=== PATIENT | female | born 1945 | race Caucasian/White ===

== ENCOUNTER 2020-05-12 11:03 | Emergency (ER) | payer OTHER ==
[~2020-05-12] VITALS: Ht 162.6 cm; Wt 52.2 kg
[2020-05-12] MEDS ORDERED: VITAMIN C500 M2 PO (15:06)
[2020-05-12] MEDS ORDERED: ASA81BEC PO (15:06)
[2020-05-12] MEDS ORDERED: ATORVASTATIN CA80 MG PO (15:07)
[2020-05-12] MEDS ORDERED: CARBIDOPA-LEVODOPA PO (15:08)
[2020-05-12] MEDS ORDERED: CLOZAPINE ODT12.5 MG PO (15:09)
[2020-05-12] MEDS ORDERED: CARDIZEM SR 60M60 MG PO (15:09)
[2020-05-12] MEDS ORDERED: FEOSOL325 M1 PO (15:10)
[2020-05-12] MEDS ORDERED: DULCOLAX STOOL100 M1 PO (15:10)
[2020-05-12] MEDS ORDERED: FUROSEMIDE 40 M40 MG PO (15:11)
[2020-05-12] MEDS ORDERED: LEVO-T100 MCG PO (15:11)
[2020-05-12] MEDS ORDERED: LORAZEPAM 0.50.5 MG PO (15:12)
[2020-05-12] MEDS ORDERED: LITHIUM CARBON300 M3 PO (15:12)
[2020-05-12] MEDS ORDERED: METFORMIN HCL500 M3 PO (15:13)
[2020-05-12] MEDS ORDERED: UNICOMPLEX M TA1 TA1 PO (15:15)
[2020-05-12] MEDS ORDERED: TOPROL XL25 MG PO (15:15)
[2020-05-12] MEDS ORDERED: NITROSTAT0.4 M1 SUBLING (15:15)
[2020-05-12] MEDS ORDERED: FISH OIL 1,0001 EAC9 PO (15:16)
[2020-05-12] MEDS ORDERED: MIRALAX17 GM PO (15:17)
[2020-05-12] MEDS ORDERED: POTASSIUM20 PO (15:18)
[2020-05-12 20:58] VITALS: BP 138/84
== END 2020-05-12 21:35 ==
LOC: ER 11:03
DX: F03.91 Unspecified dementia, unspecified severity, with behavioral disturbance (principal); G20 Parkinson's disease; F31.9 Bipolar disorder, unspecified; R53.81 Other malaise; M19.90 Unspecified osteoarthritis, unspecified site; I10 Essential (primary) hypertension; E03.9 Hypothyroidism, unspecified; E11.9 Type 2 diabetes mellitus without complications; E78.5 Hyperlipidemia, unspecified; Z20.828 Contact with and (suspected) exposure to other viral communicable diseases; Z79.899 Other long term (current) drug therapy; Z79.82 Long term (current) use of aspirin; Z91.048 Other nonmedicinal substance allergy status; Z91.040 Latex allergy status; Z88.2 Allergy status to sulfonamides

== ENCOUNTER 2020-05-12 14:37 | Inpatient (IN) | payer OTHER ==
[~2020-05-12] VITALS: Ht 162.6 cm; Wt 52.2 kg
[2020-05-12] MEDS ORDERED: VITAMIN C500 M2 PO (15:06)
[2020-05-12] MEDS ORDERED: ASA81BEC PO (15:06)
[2020-05-12] MEDS ORDERED: ATORVASTATIN CA80 MG PO (15:07)
[2020-05-12] MEDS ORDERED: CARBIDOPA-LEVODOPA PO (15:08)
[2020-05-12] MEDS ORDERED: CLOZAPINE ODT12.5 MG PO (15:09)
[2020-05-12] MEDS ORDERED: CARDIZEM SR 60M60 MG PO (15:09)
[2020-05-12] MEDS ORDERED: DULCOLAX STOOL100 M1 PO (15:10)
[2020-05-12] MEDS ORDERED: FEOSOL325 M1 PO (15:10)
[2020-05-12] MEDS ORDERED: LEVO-T100 MCG PO (15:11)
[2020-05-12] MEDS ORDERED: FUROSEMIDE 40 M40 MG PO (15:11)
[2020-05-12] MEDS ORDERED: LITHIUM CARBON300 M3 PO (15:12)
[2020-05-12] MEDS ORDERED: LORAZEPAM 0.50.5 MG PO (15:12)
[2020-05-12] MEDS ORDERED: METFORMIN HCL500 M3 PO (15:13)
[2020-05-12] MEDS ORDERED: UNICOMPLEX M TA1 TA1 PO (15:15)
[2020-05-12] MEDS ORDERED: NITROSTAT0.4 M1 SUBLING (15:15)
[2020-05-12] MEDS ORDERED: METOPROLOL TART25 MG PO (15:15)
[2020-05-12] MEDS ORDERED: FISH OIL 1,0001 EAC9 PO (15:16)
[2020-05-12] MEDS ORDERED: MIRALAX17 GM PO (15:17)
[2020-05-12] MEDS ORDERED: POTASSIUM20 PO (15:18)
--- NOTE | 2020-05-12 22:59 | NUR ---
PT ADMITTED TO THE UNIT AT APPROXIMATELY 2200. PT IS A/O X3 WITH SOME FORGETFULLNESS. PT IS UP X1 TO THE BSC. UNSTEADY AND SHOULD NOT AMBULATE AD SYLVIA. PT IS 97% ON RA. BEHAVIOR IS UNDERACTIVE AND IS SLOW TO RESPOND. SOFT SPOKEN. DENIES ANY C/O PAIN OR DISCOMFORT AT THIS TIME. PT DENIES SI/HI/AVH. CURRENTLY PT IS LYING IN HER BED AND APPEARS TO BE SLEEPING. FALL PRECAUTIONS ARE IN PLACE. WILL CONTINUE TO MONITOR.
[2020-05-13 07:30] VITALS: BP 145/82
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
--- NOTE | 2020-05-13 15:23 | NUR ---
1520 RESUMMED CARE FROM OVERNIGHT SHIFT THIS AM, PATIENT IN ROOM ASLEEP. PATIENT CAME TO DAYROOM FOR BREAKFAST TOOK MEDICATION WITHOUT INCIDENCE. PATIENT ORIENTED TIMES 3 PATIENT DENIES SI/HI/AH/VH AT PRESENT PATIENT CALM COOPERATIVE. PATIENTS ABDOMEN SOFT FLAT BOWEL SOUNDS PRESENT LUNGS CLEAR. PATIENTS CALLED HE IS PATIENT DPOA GAVE ME CONSENTS TO TREAT PATIENT AND ADMISSION. PATIENT COLORED A LITTLE WHILE IN DAYROOM SHE IS WATCHING TV AND MINIMAL INTERACTION WITH OTHER PATIENTS. WILL CONTINUE TO MONITOR FOR PATIENT FOR BEHAVIORS AND SAFETY.
[2020-05-13 19:06] LABS: ABSOLUTE NEUTROPHILS 5.6 thou/uL (1.4-8.2); BASOPHILS 0.5 % (0.0-2.0); HEMATOCRIT 43.4 % (37.0-47.0); HEMOGLOBIN 14.5 gm/dL (12.0-15.0); LYMPHOCYTES 16.9 % (24.0-44.0); MCH 30.9 pg (26.0-34.0); MCHC 33.5 g/dL (28.0-37.0); MCV 92.3 fL (80.0-100.0); MONOCYTES 10.7 % (1.0-8.0); PLATELET COUNT 294 thou/uL (150-400); POLYS 70.9 % (36.0-66.0); RDW 15.5 % (10.5-14.5); WBC 7.9 thou/uL (4.0-11.0)
[2020-05-13 19:20] LABS: ALBUMIN 3.6 g/dL (3.4-5.0); CALCIUM 10.4 mg/dL (8.5-10.1); CREATININE 1.1 mg/dL (0.6-1.0); POTASSIUM 3.2 mmol/L (3.5-5.1); TOTAL BILIRUBIN 0.7 mg/dL (0.2-1.0); TOTAL PROTEIN 7.5 g/dL (6.4-8.2)
[2020-05-13 20:14] VITALS: BP 141/71
--- NOTE | 2020-05-14 01:43 | NUR ---
05-13-20 CARE TRANSFERRED 1899. PT AAOX2, VSS, RR EVEN AND NONLABORED ON RA. PT DENIES SI/HI AND PAIN. PT PRESENTS CALM AND COOPERATIVE, WHEN ASKING QUESTIONS PT HAS SLOW, CLEAR RESPONSES. DURING MEDICATION ADMIN PT HAD NO DIFFICLUTIES TAKING MEDICATION WHOLE WITH WATER. ZERO S/S OF ACUTE DISTRES, PT WILL CONTINUE TO BE MONITOR PER [facility] PROTOCOL.
[2020-05-14 11:20] VITALS: BP 125/69
[2020-05-14 19:56] VITALS: BP 108/66
--- NOTE | 2020-05-15 03:48 | NUR ---
05-15-20 CARE TRANSFERRED 1900 OBSERVED PT SITTING IN DAY ROOM SOCIALIZING WITH PEER(S). DURING NURSING ASSESSMENT PT HAS COGNITIVE DELAY IN RESPONSES TO QUESTIONS, PT EXHIBIT PARANOIA WHEN TRUSTING OTHERS, FLAT AFFECT. PT AAOX1, VSS, RR EVEN AND NONLABORED ON RA. PT DENIES SI/HI AND PAIN. PT HAS REMAINED CALM AND COOPERATIVE. DURING MEDICATION ADMIN PT HAD NO DIFFICULTIES TAKING MEDICATION WHOLE WITH WATER. LATER ADJUSTED PT BED FOR COMFORT, ZERO S/S OF ACUTE DISTRESS NOTED. PT WILL CONTINUE TO BE MONITOR PER [facility] PROTOCOL.
[2020-05-15 07:47] VITALS: BP 97/59
[2020-05-15 10:51] VITALS: BP 102/64
--- NOTE | 2020-05-15 12:29 | NUR ---
1230 RESUMMED CARE FROM OVERNIGHT SHIFT THIS AM, PATIENT IN ROOM QUIET. PATIENT GOT UP AND ATE BREAKFAST TOOK MEDICATION WITHOUT INCIDENCE. PATIENT ORIENTED TIMES 4 QUIET CALM COOPERATIVE. PATIENTS ABDOMEN SOFT ROUND BOWEL SOUNDS PRESENT LUNGS CLEAR. PATIENT DENIES SI/HI/AH/VH AT PRESENT WILL CONTINUE TO MONITOR PATIENT FOR BEHAVIORS AND SAFETY.
[2020-05-15 19:40] VITALS: BP 146/97
--- NOTE | 2020-05-16 04:33 | NUR ---
Assumed care of patient this pm shift. Patient is pleasantly confused. Alert and oriented to self. Patient denies hi/si. Patients affect is flat. Patient takes medications whole with thin fluids. Patient ambulates with a steady gait and utilizes a walker at times. Patient has been up several times in the night stating that she wants to get dressed for the meeting. Patient is redirectable and goes back to bed after a brief explanation of the time. We will continue to monitor per hospital policy.
[2020-05-16 09:18] VITALS: BP 125/68
--- NOTE | 2020-05-16 11:15 | NUR ---
Care assumed of patient at 0715: Patient in her room at start of shift. Patient alert and oriented to person and place. Confused and forgetful. Patient appears to be worried about her clothing and showering today. Needing reminders that she received new clothing this AM and will shower after lunch. Patient denies pain and discomfort. Denies SI/HI/AH/VH. No delusional or paranoia behaviors observed. Patient speech is slow and soft. Took AM medication without difficulty. Ambulating with walker about unit and her room. Steady gait, good balance. Seated quietly in her room at this time.
[2020-05-16 20:18] VITALS: BP 97/61
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
[2020-05-17 06:31] LABS: HEMATOCRIT 38.9 % (37.0-47.0); MCH 30.7 pg (26.0-34.0); MCHC 33.3 g/dL (28.0-37.0); MCV 92.1 fL (80.0-100.0); RBC 4.22 mil/uL (4.20-5.00); RDW 15.3 % (10.5-14.5); WBC 5.8 thou/uL (4.0-11.0)
[2020-05-17 06:59] LABS: CALCIUM 9.7 mg/dL (8.5-10.1); CREATININE 0.9 mg/dL (0.6-1.0); MAGNESIUM 2.1 mg/dL (1.8-2.4)
[2020-05-17 07:12] LABS: POTASSIUM 2.6 mmol/L (3.5-5.1)
--- NOTE | 2020-05-17 07:20 | NUR ---
LAB CALLED WITH CRITICAL POTASSIUM VALUE OF 2.6, DR. ESQUEDA NOTIFIED. WILL PUT SOME ORDERS IN FOR HER PER DR. ESQUEDA.
[2020-05-17 09:17] VITALS: BP 92/56; BP 94/56
--- NOTE | 2020-05-17 11:19 | NUR ---
PATIENT WAS IN BED SLEEPING WHEN CARE ASSUMED THIS MORNING. SHE IS ALERT, AND ORIENTED X 1-2 WITH PERIODS OF FORGETFULNESS, AND CONFUSION. PATIENT HAD BREAKFAST IN ROOM, ABLE TO FEED SELF. MORNING MEDICATION GIVEN WHOLE WITHOUT DIFFICULTY, WELL TOLERATED. PATIENT PARTICIPATED IN MORNING GROUP. SHE IS CALM, COOPERATIVE WITH CARE. AFFECT IS FLAT/BLUNTED, MOOD IS DEPRESSED, AND CALM. PATIENT DENIES SUICIDAL/HOMICIDAL IDEATION. NO SIGN OF ACUTE DISTRESS NOTED AT THIS TIME, WILL CONTINUE TO REDIRECT, AND MONITOR FOR SAFETY.
[2020-05-17 17:32] LABS: CALCIUM 10.3 mg/dL (8.5-10.1)
[2020-05-17 17:33] LABS: POTASSIUM 4.9 mmol/L (3.5-5.1)
[2020-05-17 19:47] VITALS: BP 135/75
[2020-05-17 20:30] VITALS: BP 135/75
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
[2020-05-18 09:13] VITALS: BP 117/76
--- NOTE | 2020-05-18 11:50 | NUR ---
RT Progress Note- Elma has been an active participant in recreation therapy groups this week. She often displays a flattened affect, but offers full participation. During unscheduled activities, she returns to her room. THROUGH OPERATOR has only observed paranoid behaviors when a select patient begins wandering near her room, however she does not appear paranoid during group interactions. THROUGH OPERATOR will continue to encourage participation and socialization.
--- NOTE | 2020-05-18 15:50 | NUR ---
Alert and orientated X 3 this AM, concerned about missing eyeglasses which were later found. Denies SI/HI. Breath sounds clear. Reg HR auscultated. Color pink with brisk capillary refill and palpable peripheral pulses. Independent with voiding. Active bowel sounds over soft, flat abdomen. Ambulating with regular, steady, slow gait with walker. Currently in room, no s/o distress.
[2020-05-18 20:47] VITALS: BP 140/85
--- NOTE | 2020-05-19 04:17 | NUR ---
Assumed pt care at 1900. Pt has been up in room during evening. Pt is alert and oriented x 2. Pt has been calm, cooperative and pleasant. Pt takes medications whole with thin fluids. Pt is medicaiton complaint. Pt HS accu check was 118; no sliding scale adminsitered per orders. Pt denies pain. Pt denied SI/HI. Pt affect is flat. Pt is pleasantly confused, but easily redirectable. Pt up at 0400 to use restroom. Pt last BM was 05/18/20. Will continue to monitor for behaviors/status, and safety per the unit protocol.
[2020-05-19 09:58] VITALS: BP 123/61
[2020-05-19 09:59] VITALS: BP 123/61
[2020-05-19 10:09] VITALS: BP 123/61
--- NOTE | 2020-05-19 12:23 | NUR ---
1230 RESUMMED CARE FROM OVERNIGHT SHIFT THIS AM, PATIENT IN ROOM QUIET CALM. PATIENT CAME TO DAYROOM ATE BREAKFAST TOOK MEDICATION WITHOUT INCIDENCE. PATIENT DENIES SI/HI/AH/VH AT PRESENT PATIENT ORIENTED TIMES 4 CALM COOPERATIVE. PATIENTS ABDOMEN SOFT FLAT BOWEL SOUNDS PRESENT LUNGS CLEAR, SKIN INTACT. PATIENT SPOKE WITH THIS AM PARTICIPATED IN GROUPS WILL CONTINUE TO MONITOR PATIENT FOR SAFETY AND BEHAVIORS.
[2020-05-19 20:32] VITALS: BP 143/90
--- NOTE | 2020-05-20 03:26 | NUR ---
Assumed care of patient this pm shift. Patient is pleasantly confused, alert and oriented to self only. Patient takes medicaitons whole with thin fluids. Patient denies hi/si. Patient ambulates with a walker. Patient denies pain. Patient is considered a falls risk, falls precautions in place. Vital signs are stable. Patients assessment shows no signs of acute distress. Affect is suspicious. We will continue to monitor per hospital policy.
[2020-05-20 08:16] VITALS: BP 106/63
[2020-05-20 08:30] VITALS: BP 106/63
--- NOTE | 2020-05-20 09:30 | NUR ---
SW attemtped to administer a SLUMS with pt. When SW approached, pt just stared at SW. SW asked her how she was doing several times, and she didnt respond. SW then told pt she will talk with her nurse. Pt responded "what?" SW again tried to engage pt, and pt just stared at SW. SW provided an update on her interaction with pt. SW team will continue to follow pt during her stay on this unit.
--- NOTE | 2020-05-20 10:42 | NUR ---
LISTENED TO PT HEART THIS AM AND IT WAS IRREGULAR RATE. PT STATED SHE DIDN'T FEEL GOOD TODAY. ASSISTED PT TO BATHROOM THIS AM AND SHE STOPPED IN FRONT OF THE BATHROOM DOOR. PT SEEMS SLOW THIS AM. OBTAINED EKG ORDER FROM DEION CLIFTON, SHOWED AFIB. CALLED DR. KNOTT DUE TO AFIB RESULT AND NEEDING CARDIAC MEDS ORDERED FROM HOME MED LIST.
--- NOTE | 2020-05-20 12:22 | NUR ---
ADM METOPROLOL 25MG PO. PT TAKES MEDS WHOLE WITH WATER. PT UP TO DINING ROOM TO EAT LUNCH, EATING 50% OF LUNCH. PT USES WALKER FAITHLY. PT STATED SHE FELT BETTER.
--- NOTE | 2020-05-20 15:30 | NUR ---
PT FINISHED BRUSHING TEETH AND WAS SOA. ASSISTED PT WITH TAKING OFF HER SHIRT TO CHANGE IT. SHE DIDN'T WANT THIS FINANCE ATTORNEY TO TAKE HER SHIRT TO WASH STATING THAT SHE ILL NOT GET IT BACK. ENSURED PT THAT SHE WILL GET HER CLOTHERS BACK. PT HAS JECANDELARIA IN HER ROOM AND STATED ONE PAIR IS TOO TIGHT AND ONE PAIR IS TOO BIG SEEMS THAT BOTH PAIRS ARE THE SAME SIZE.
[2020-05-20 19:50] VITALS: BP 126/60
--- NOTE | 2020-05-21 05:02 | NUR ---
05-20-20 CARE TRANSFERRED 1900 OBSERVED PT SITTING ON BUNK IN ROOM. PT AAOX2, VSS, RR EVEN AND NONLABORED ON RA. PT DENIES SI/HI AND PAIN. PT PRESENTS PARANOID, BUT HAS REMAINED CALM AND COOPERATIVE THROUGHOUT NURSING ASSESSMENT. DURING MEDICATION ADMIN PT HAD NO DIFFICULTIES. PT WAS ASSISTED WITH ADJUSTMENT OF BED FOR COMFORT; ZERO S/S OF ACUTE DISTRESS NOTE. PT WILL CONTINUE TO BE MONITOR PER [facility] PROTOCOL.
[2020-05-21 09:18] VITALS: BP 81/49
--- NOTE | 2020-05-21 09:48 | NUR ---
SW attempted again to complete a SLUMS with pt. Pt looked at SW. She then responded very slowly but SW was unable to understand what she said. SW asked if she remembers her from yesterday. Pt responded "no." SW asked if she would like to speak to SW today. Pt responded but it was something SW could not understand. SW asked her to repeat, but pt just stared at her. Staff said she has been somewhat talking but very low and mostly reponses that are not appropiate to the question being asked. SW team will continue to follow pt during her stay on this unit.
--- NOTE | 2020-05-21 18:46 | NUR ---
INITALLY THIS AM PLEASANT AND COOPERATIVE DENIES COMPLAINTS-VISIBLE IN DAYROOM WITH PEERS AND ABLE TO FEED SELF BREAKFAST-ORIENTED TO NAME ONLY-AT APPROX 1230 NOTED TO BECOME SUSPICIOUS AND ARGUMENTATIVE WITH STAFF -
[2020-05-21 20:17] VITALS: BP 105/71
--- NOTE | 2020-05-21 21:38 | EKG ---
[address] [place] [address] ELECTROCARDIOGRAM REPORT Name: EVERTON KNIGHT Room #: [facility]- ADM IN ..#: [id number] Admission: 05/12/20 Attend Phys: Neymar Thompson DO Discharge: Date of : 49 Report #: [id number] [facility] Test Date: 2020-05-20 Test Time: 09:46:58 Pat Name: EVERTON KNIGHT Department: Room: [facility] Gender: F [employer]: AMEE : 1945 Requested By: Reji Durand Order Number: [id number] MD: Fredrick Franco Measurements Intervals [place] Rate: 108 P: ID: QRS: -20 QRSD: 94 T: 104 QT: 346 QTc: 464 Interpretive Statements Atrial fibrillation Rapid ventricular response Lead I, aVL criteria for LVH with secondary repolarization abnormality No previous ECG available for comparison Electronically Signed On 05-21-2020 21:38:06 [employer] by Fredrick Franco [email or web address] <ELECTRONICALLY SIGNED> By: Fredrick Franco MD 05/21/20 2138 0946 5 Fredrick Franco MD /POORNIMA
--- NOTE | 2020-05-22 05:06 | NUR ---
Assumed pt care at 1900. Pt in dayroom sitting in w/c during earlier part of shift. Pt is calm and cooperative with assessment and medication compliant. Pt takes medications whole with thin liquids. Pt is A&O x 2. Pt presents with flat affect. Pt can be suspicious at times, but has been redirectable. Pt can ambulate with walker, but has been unsteady and utilizing a w/c throughout this shift. Pt is pleasantly confused and is redirectable. Pt assisted with ADLs and dressing this morning. Pt had PRN Tylenol and Zofran at 0122 for generalized pain and upset stomach/nausea. PRNs effective. Pt denies SI/HI. Pt is a high falls risk and fall risk precautions are implemented and in place. Will continue to monitor for changes in behavior and for safety per hospital protocol.
[2020-05-22 07:50] VITALS: BP 105/70
[2020-05-22 08:40] VITALS: BP 105/70
--- NOTE | 2020-05-22 09:04 | NUR ---
PT SITTING IN DINING ROOM IN W/C. PT HAS FLAT AFFECT AND SEEMS TIRED THIS AM. PT ABLE TO FEED SELF. PT TOOK MEDS WHOLE WITH WATER. ASKED PT IF SHE WOULD LIKE A SHOWER, PT STATED I DON'T HAVE ANY CLOTHES. PT HAS SHIRTS AND BLACK PANTS IN ROOM, SHE ALSO HAS JEANS IN HER ROOM. PT NOT USING A WALKER TODAY. PT VERY SLOW WITH W/C.
--- NOTE | 2020-05-22 10:17 | NUR ---
Assess for length of stay on [facility] unit. Pt unable to answer questions. Chart reviewed, eating >75% most meals, no wt changes and BG levels controlled. Low nutrition risk
[2020-05-22 20:06] VITALS: BP 101/69
[2020-05-23 05:21] LABS: ABSOLUTE NEUTROPHILS 5.9 thou/uL (1.4-8.2); BASOPHILS 0.4 % (0.0-2.0); EOSINOPHILS 2.5 % (0.0-3.0); HEMATOCRIT 34.6 % (37.0-47.0); HEMOGLOBIN 11.7 gm/dL (12.0-15.0); LYMPHOCYTES 10.5 % (24.0-44.0); MCH 31.3 pg (26.0-34.0); MCHC 33.9 g/dL (28.0-37.0); MCV 92.4 fL (80.0-100.0); MONOCYTES 9.8 % (1.0-8.0); PLATELET COUNT 202 thou/uL (150-400); POLYS 76.8 % (36.0-66.0); RBC 3.74 mil/uL (4.20-5.00); RDW 15.5 % (10.5-14.5); WBC 7.6 thou/uL (4.0-11.0)
--- NOTE | 2020-05-23 05:26 | NUR ---
Assumed care for this patient at 1900. Pt up in day room in wheelchair. Pt A&O x 2. Pt presents with flat affect. She is pleasant, calm and cooperative. Pt utilizes walker and w/c at times d/t being unsteady. Pt takes medications whole with thin liquids. Pt complaint with medications. Pt assisted with taking a bath this shift and washing her hair. Pt personal clothing was washed & bedding changed. Pt was able to independently wash face and front of body, assisted with washing hair and back. Pt wears brief and able to voice when she needs to use restroom. Pt is a high fall risk with fall protocols in place. Will continue to monitor for any changes and safety.
[2020-05-23 05:44] LABS: ALBUMIN 3.1 g/dL (3.4-5.0); CREATININE 0.8 mg/dL (0.6-1.0); POTASSIUM 3.4 mmol/L (3.5-5.1); TOTAL BILIRUBIN 0.8 mg/dL (0.2-1.0); TOTAL PROTEIN 5.8 g/dL (6.4-8.2)
[2020-05-23 07:55] VITALS: BP 87/56
[2020-05-23 08:30] VITALS: BP 87/56
[2020-05-23 08:37] VITALS: BP 120/74
--- NOTE | 2020-05-23 08:42 | NUR ---
RECHECKED BP FROM 87/56, 82. NOW 120/74, 89. PT RESTING IN BED. PT AWAKEN WITH VERBAL STIMULI. PT HAD SHOWER LAST NIGHT.
--- NOTE | 2020-05-23 11:00 | NUR ---
PT AWAKE NOW AND GETTING UP. PT NEEDED TO USE W/C DUE TO RETROGRADE BACK WITH WALKER. PT TOOK MEDS WITHOUT ANY ISSUES.
--- NOTE | 2020-05-23 12:58 | EKG ---
[address] [address] ELECTROCARDIOGRAM REPORT Name: EVERTON KNIGHT Room #: 520A- ADM IN M.R.#: [id number] Admission: 05/12/20 Attend Phys: Neymar Thompson DO Discharge: Date of : 49 Report #: [id number] [facility] Test Date: 2020-05-23 Test Time: 12:25:16 Pat Name: EVERTON KNIGHT Department: Room: [facility] Gender: F [employer]: RAYSA : 1945 Requested By: Maria E Schwartz Order Number: [id number] MD: Reji Weinstein Measurements Intervals [place] Rate: 87 P: CO: QRS: -22 QRSD: 89 T: 58 QT: 367 QTc: 442 Interpretive Statements Atrial fibrillation Ventricular premature complex Abnormal R-wave progression, late transition Left ventricular hypertrophy Compared to ECG 05/20/2020 09:46:58 Ventricular premature complex(es) now present Early repolarization no longer present Electronically Signed On 05-23-2020 12:58:40 [employer] by Reji Weinstein [email or web address] <ELECTRONICALLY SIGNED> By: Reji Weinstein MD, FACC 05/23/20 1258 1225 1225 Reji Weinstein MD, FACC /EPI
--- NOTE | 2020-05-23 17:31 | NUR ---
PT SITTING OUT IN DINING ROOM SINCE 4PM. PT VOICED NO COMPLAINTS TODAY.
[2020-05-23 19:32] VITALS: BP 133/84
--- NOTE | 2020-05-24 04:43 | NUR ---
Assumed care of patient this pm shift. Patient calm and cooperative. Alert and oriented to self. Takes medications whole with thin fluids. Falls precautions in place. Denies hi/si. Assessment shows no signs of acute distress. Ambulates via walker. Continent of bowel and bladder. Vital signs stable. No negative or abnormal behaviors this shift. We will continue to monitor per hospital policy.
[2020-05-24 07:30] VITALS: BP 93/58
[2020-05-24 08:54] VITALS: BP 140/93
--- NOTE | 2020-05-24 16:43 | NUR ---
SW called Willi concerning Pt's d/c. Willi stated he would be able to pick the Pt up on 05/25/2020 @[id number]. Pt has a follow up appointment with her psychiatrist, Dr. Morfin, on 06/15/2020 @ 0900.
--- NOTE | 2020-05-24 18:52 | NUR ---
Alert and orientated X2, denies SI/HI. Affect very flat, sleepy this AM. Breath sounds clear. Irregular HR auscultated. Color pink with brisk capillary refill and palpable peripheral pulses. Independent with voiding. Active bowel sounds over soft, rounded abdomen. Ambulating with walker later in day, in WC in AM hours. Quiet, isolating in room or watching TV with peers.
[2020-05-24 19:31] VITALS: BP 101/62
--- NOTE | 2020-05-25 00:38 | NUR ---
Assumed care on 05/24/20 @ 19:15, in bed Cooperates with assessment, HRRR, Lungs CTA bilat, ABD N x 4Q. Reports bm today. Compliant with medication administration, taking meds whole with water. Denies needs. Returned to sleep, bed in low position, 3 bed rails up for patient mobility. rounding as per unit protocol.
[2020-05-25 00:45] VITALS: BP 101/62
[2020-05-25] MEDS ORDERED: CLOZAPINE50 MG PO ×2 (08:03)
[2020-05-25] MEDS ORDERED: SYNTHROID75 MCG PO (08:03)
[2020-05-25] MEDS ORDERED: METOPROLOL TART25 MG PO (08:03)
[2020-05-25 09:11] VITALS: BP 101/52
--- NOTE | 2020-05-25 10:08 | NUR ---
TIAN provided Pt's DPOA with a SW handout with follow up appointment information and a list of home health agencies.
[2020-05-25 10:18] VITALS: BP 101/52
--- NOTE | 2020-05-25 14:28 | NUR ---
0700 ASSUMED CARE OF PATIENT. PATIENT TO DAYROOM FOR BREAKFAST SITTING IN WC AT TABLE. PATIENT CALM AND QUIET. ANSWERS SIMPLE QUESTIONS. MEDICATIONS TAKEN WHOLE WITHOUT DIFFICULTY. REQUESTS ICE WATER X2. VS BP- 101/52, P- 91, R- 17, T- 99.5, O2 SATS 97%. PATIENT FALLS ASLEEP OFF AND ON IN WC CHAIR. PATIENT TO ROOM TO GET READY FOR DC. PATIENT ASSISTED WITH GETTING DRESSED AND USING BR. BELONGINGS IN HAND. PT DC VIA WC TO VEHICLE WHERE SON WAITING. DC INSTRUCTIONS GIVEN TO SON, VOICED UNDERSTANDING AND SIGNED FORMS.
== END 2020-05-25 11:00 | disposition home or self-care (01) | DRG 885 ==
LOC: SBH
PROVIDERS: Internal Medicine; Nurse Practitioner Family; ADMIT Psychiatry & Neurology Psychiatry; ATTEND Psychiatry & Neurology Psychiatry
DX: F31.5 Bipolar disorder, current episode depressed, severe, with psychotic features (principal); I50.30 Unspecified diastolic (congestive) heart failure; F01.51 Vascular dementia, unspecified severity, with behavioral disturbance; E78.5 Hyperlipidemia, unspecified; G20 Parkinson's disease; M19.90 Unspecified osteoarthritis, unspecified site; D63.8 Anemia in other chronic diseases classified elsewhere; R53.81 Other malaise; E03.9 Hypothyroidism, unspecified; E10.9 Type 1 diabetes mellitus without complications; I11.0 Hypertensive heart disease with heart failure; F41.9 Anxiety disorder, unspecified; F41.1 Generalized anxiety disorder; F29 Unspecified psychosis not due to a substance or known physiological condition; E87.6 Hypokalemia; I25.10 Atherosclerotic heart disease of native coronary artery without angina pectoris; E83.52 Hypercalcemia; Z20.828 Contact with and (suspected) exposure to other viral communicable diseases; Z91.040 Latex allergy status; Z88.2 Allergy status to sulfonamides; Z88.8 Allergy status to other drugs, medicaments and biological substances; Z79.82 Long term (current) use of aspirin; Z79.899 Other long term (current) drug therapy
CPT/HCPCS: 10880